=== PATIENT | female | born 1945 | race African-American/Black ===

== ENCOUNTER 2023-12-20 19:54 | Inpatient (IN) | payer OTHER, MEDICARE ==
[~2023-12-20] VITALS: Ht 157.5 cm; Wt 80.3 kg
[2023-12-20] MEDS ORDERED: CEFEPIME 2GM IN DEXT 5% 100ML IV ONE (21:15)
[2023-12-20] MEDS: CEFEPIME 2GM/100ML 100 ML IV NR (21:15)
[2023-12-20] MEDS: SODIUM CHLORIDE 0.9% 1000ML BAG (SEPSIS BOLUS) IV ONE (21:29)
[2023-12-20 21:33] LABS: BASOPHILS % 0.2 % (0.0-2.0); DIFFERENTIAL COMMENT 0; EOSINOPHILS % 0.1 % (0.0-5.0); HEMATOCRIT. 37.6 % (36.0-48.0); HEMOGLOBIN. 11.9 g/dL (12.0-16.0); LYMPHOCYTES % 7.3 % (20.0-50.0); MEAN CORPUSCULAR HEMOGLOBIN 23.9 pg (28.0-32.0); MEAN CORPUSCULAR HGB CONC 31.7 g/dL (31.0-37.0); MEAN CORPUSCULAR VOLUME 75.3 fL (81.0-99.0); MEAN PLATELET VOLUME 9.2 fl (7.4-10.4); NEUTROPHILS % 85.4 % (40.0-76.0); PLATELET 415 x1000/uL (130-400); RED CELL DISTRIBUTION WIDTH 15.8 % (11.6-14.6); WHITE BLOOD COUNT 15.1 x1000/uL (4.5-11.0)
[2023-12-20 21:34] LABS: CHLORIDE 107 mEq/L (98-107); POTASSIUM 5.3 mEq/L (3.5-5.1); SODIUM 147 mEq/L (136-145)
[2023-12-20 21:35] LABS: CARBON DIOXIDE 22 mEq/L (21-32)
[2023-12-20 21:40] LABS: CREATININE 1.5 mg/dL (0.6-1.0); GLUCOSE 102 mg/dL (70-105); UREA NITROGEN BLOOD 23 mg/dL (9-23)
[2023-12-20 21:42] LABS: CREATINE KINASE 85 IU/L (34-145); LACTIC ACID 2.5 mmol/L (0.4-2.0)
[2023-12-20 21:43] LABS: TROPONIN I HIGH SENSITIVITY 46 ng/L (3.0-34)
[2023-12-20] MEDS: VANCOMYCIN 1G PREMIX 200 ML IV ONE (22:00)
[2023-12-21 02:01] LABS: TROPONIN I HIGH SENSITIVITY 60 ng/L (3.0-34)
[2023-12-21 02:06] LABS: INR 1.1; PROTHROMBIN TIME 12.1 sec (9.6-11.0)
[2023-12-21] MEDS: DEXT 5%/0.45% NACL 1000ML 1,000 ML IV SCH (05:15)
[2023-12-21] MEDS ORDERED: DOCUSATE SODIUM 100MG CAPSULE PO PRN (05:15)
[2023-12-21] MEDS ORDERED: ACETAMINOPHEN 325MG TABLET PO PRN ×2 (05:15)
[2023-12-21] MEDS ORDERED: HYDRALAZINE 20MG/ML VIAL IV PRN (05:15)
[2023-12-21] MEDS ORDERED: IPRATROPIUM/ALBUTEROL 0.5-3(2.5)MG/3ML NEB HHN PRN (05:15)
[2023-12-21] MEDS ORDERED: MAGNESIUM/ALUMINUM HYDROXIDE/SIMETHICONE 30ML UDC PO PRN (05:15)
[2023-12-21] MEDS ORDERED: DEXTROSE 50% WATER 50ML SYRINGE IV PRN (06:15)
[2023-12-21] MEDS: BLOOD SUGAR DIAGNOSTIC STRIP TEST SCH (06:45)
[2023-12-21] MEDS: INSULIN LISPRO 100 UNITS/ML SUBCUT SCH (07:15)
[2023-12-21] MEDS: CEFTRIAXONE 1GM/50ML 50 ML IV SCH (08:48)
[2023-12-21] MEDS: ENOXAPARIN 30MG/0.3ML SYR SUBCUT SCH (08:49)
[2023-12-21 10:39] LABS: BASOPHILS % 0.3 % (0.0-2.0); DIFFERENTIAL COMMENT 0; EOSINOPHILS % 0.2 % (0.0-5.0); HEMATOCRIT. 35.8 % (36.0-48.0); HEMOGLOBIN. 11.3 g/dL (12.0-16.0); LYMPHOCYTES % 9.8 % (20.0-50.0); MEAN CORPUSCULAR HEMOGLOBIN 23.7 pg (28.0-32.0); MEAN CORPUSCULAR HGB CONC 31.5 g/dL (31.0-37.0); MEAN CORPUSCULAR VOLUME 75.3 fL (81.0-99.0); MEAN PLATELET VOLUME 9.2 fl (7.4-10.4); MONOCYTES % 7.7 % (2.0-8.0); PLATELET 357 x1000/uL (130-400); RED BLOOD CELL COUNT 4.75 mill/uL (4.2-5.4); RED CELL DISTRIBUTION WIDTH 15.3 % (11.6-14.6); WHITE BLOOD COUNT 13.8 x1000/uL (4.5-11.0)
[2023-12-21 10:42] LABS: CHLORIDE 110 mEq/L (98-107); SODIUM 148 mEq/L (136-145)
[2023-12-21 10:43] LABS: CARBON DIOXIDE 26 mEq/L (21-32); INR 1.1; PARTIAL THROMBOPLASTIN TIME 22.2 sec (23.4-31.0); PROTHROMBIN TIME 12.1 sec (9.6-11.0)
[2023-12-21 10:44] LABS: CALCIUM 9.6 mg/dL (8.7-10.4); CREATINE KINASE MB FRACTION 3.2 ng/mL (0.5-3.6)
[2023-12-21 10:48] LABS: GLUCOSE 118 mg/dL (70-105)
[2023-12-21 10:49] LABS: AMMONIA < 17 uMol/L (<32); UREA NITROGEN BLOOD 24 mg/dL (9-23)
[2023-12-21 10:50] LABS: ALANINE AMINOTRANSFERASE 55 IU/L (10-49); ALBUMIN 4.2 g/dL (3.2-4.8); ASPARTATE AMINOTRANSFERASE 46 IU/L (<34)
[2023-12-21 10:51] LABS: BILIRUBIN TOTAL 0.6 mg/dL (0.1-1.0); PROTEIN TOTAL 8.3 g/dL (6.0-8.3)
[2023-12-21 10:56] LABS: FOLIC ACID (FOLATE) SERUM 8.11 ng/mL (>5.38)
[2023-12-21 10:57] LABS: VITAMIN B12 SERUM 1292 pg/mL (211-911)
[2023-12-21] MEDS: PANTOPRAZOLE SODIUM 40 MG/VIAL IV SCH (11:06)
[2023-12-21 11:22] LABS: POTASSIUM 2.8 mEq/L (3.5-5.1)
[2023-12-21] MEDS: POTASSIUM CHLORIDE 20MEQ/PACKET PO NR (11:38)
[2023-12-21 12:00] VITALS: BP 111/69; PULSE 94; RESP 18; TEMP 97
[2023-12-21 16:00] VITALS: BP 115/66; PULSE 109; RESP 18; TEMP 97.6
[2023-12-21 16:58] LABS: HEPATITIS B SURFACE ANTIGEN NEGATIVE (Negative)
[2023-12-21 17:19] LABS: HEPATITIS C AB REACTIVE (Pos) (Negative)
[2023-12-21 20:00] VITALS: BP 121/84; PULSE 73; RESP 19; TEMP 98.6
[2023-12-21] MEDS: MELATONIN 3MG TABLET PO SCH (22:15)
[2023-12-22] VITALS: BP 120/68; PULSE 99; RESP 19; TEMP 97.8
[2023-12-22 04:00] VITALS: BP 124/76; PULSE 97; RESP 18; TEMP 98.2
[2023-12-22 06:36] LABS: BASOPHILS % 0.3 % (0.0-2.0); DIFFERENTIAL COMMENT 0; EOSINOPHILS % 0.4 % (0.0-5.0); HEMATOCRIT 34.6 % (36.0-48.0); HEMATOCRIT. 34.6 % (36.0-48.0); LYMPHOCYTES % 14.7 % (20.0-50.0); MEAN CORPUSCULAR HEMOGLOBIN 23.4 pg (28.0-32.0); MEAN CORPUSCULAR HGB CONC 31.7 g/dL (31.0-37.0); MEAN CORPUSCULAR VOLUME 73.6 fL (81.0-99.0); MEAN PLATELET VOLUME 9.3 fl (7.4-10.4); MONOCYTES % 9.9 % (2.0-8.0); NEUTROPHILS % 74.7 % (40.0-76.0); PLATELET 289 x1000/uL (130-400); RED CELL DISTRIBUTION WIDTH 15.5 % (11.6-14.6)
[2023-12-22 06:49] LABS: CARBON DIOXIDE 22 mEq/L (21-32); CHLORIDE 108 mEq/L (98-107); SODIUM 143 mEq/L (136-145)
[2023-12-22 06:50] LABS: CALCIUM 8.7 mg/dL (8.7-10.4)
[2023-12-22 06:53] LABS: THYROID STIMULATING HORMONE 0.46 uIU/mL (0.55-4.78)
[2023-12-22 06:55] LABS: CREATININE 0.8 mg/dL (0.6-1.0); GLUCOSE 116 mg/dL (70-105); TRIGLYCERIDE 82 mg/dL (0-150); UREA NITROGEN BLOOD 18 mg/dL (9-23)
[2023-12-22 06:56] LABS: LDL CHOLESTEROL 56 mg/dL (5-100)
[2023-12-22 06:57] LABS: CHOLESTEROL 95 mg/dL (<200); HDL CHOLESTEROL 27 mg/dL (>65); PHOSPHORUS 1.6 mg/dL (2.5-4.9)
[2023-12-22 08:00] VITALS: BP 125/80; PULSE 93; RESP 19; TEMP 97.1
[2023-12-22 09:42] LABS: POTASSIUM 2.7 mEq/L (3.5-5.1)
[2023-12-22] MEDS: LEVOTHYROXINE SODIUM 25MCG TABLET PO SCH (10:24)
[2023-12-22] MEDS: ONDANSETRON HCL 4MG/2ML INJ IV PRN (11:03)
[2023-12-22 12:00] VITALS: BP 127/83; PULSE 94; RESP 19; TEMP 96.8
[2023-12-22 12:29] LABS: IRON 106 ug/dL (50-170)
[2023-12-22 12:31] LABS: TOTAL IRON BINDING CAPACITY 361 ug/dl (250-425)
[2023-12-22 12:34] LABS: T4 FREE 1.18 ng/dL (0.89-1.76)
[2023-12-22] MEDS: POTASSIUM PHOSPHATE 30 MMOL in SODIUM CHLORIDE 0.9% 490 ML IV NR (12:39)
[2023-12-22 16:00] VITALS: BP 130/74; PULSE 87; RESP 18; TEMP 97.2
[2023-12-22] MEDS: DOXYCYCLINE 100MG/100ML 100 ML IV SCH (17:28)
[2023-12-22] MEDS: MAGNESIUM 1 G PREMIX 100 ML IV NR (18:57)
[2023-12-22 20:00] VITALS: BP 121/79; PULSE 97; RESP 20; TEMP 97.9
[2023-12-23] VITALS: BP 169/82; PULSE 95; PULSE 99; RESP 20; TEMP 97.3
[2023-12-23 04:00] VITALS: BP 128/70; PULSE 76; RESP 18; TEMP 98.6
[2023-12-23 07:38] LABS: CARBON DIOXIDE 22 mEq/L (21-32); CHLORIDE 106 mEq/L (98-107); SODIUM 145 mEq/L (136-145)
[2023-12-23 07:39] LABS: CALCIUM 8.3 mg/dL (8.7-10.4)
[2023-12-23 07:43] LABS: CREATININE 0.7 mg/dL (0.6-1.0)
[2023-12-23 07:44] LABS: GLUCOSE 100 mg/dL (70-105); UREA NITROGEN BLOOD 15 mg/dL (9-23)
[2023-12-23 07:46] LABS: PHOSPHORUS 3.1 mg/dL (2.5-4.9)
[2023-12-23 07:51] LABS: POTASSIUM 2.7 mEq/L (3.5-5.1)
[2023-12-23 07:54] LABS: HEMATOCRIT 34.5 % (36.0-48.0); MEAN CORPUSCULAR HEMOGLOBIN 23.4 pg (28.0-32.0); PLATELET 263 x1000/uL (130-400); RED BLOOD CELL COUNT 4.72 mill/uL (4.2-5.4); RED CELL DISTRIBUTION WIDTH 15.6 % (11.6-14.6); WHITE BLOOD COUNT 11.8 x1000/uL (4.5-11.0)
[2023-12-23 08:00] VITALS: BP 146/80; PULSE 85; RESP 18; TEMP 97
[2023-12-23] MEDS: FAMOTIDINE 20MG/2ML VIAL IV SCH (09:01)
[2023-12-23] MEDS: POTASSIUM CHLORIDE 20MEQ/PACKET PO NR ×2 (09:01→20:51)
[2023-12-23 12:00] VITALS: BP 132/83; PULSE 99; RESP 18; TEMP 98
[2023-12-23 16:00] VITALS: BP 144/79; PULSE 99; RESP 18; TEMP 98
[2023-12-23 16:36] LABS: HEMATOCRIT 33.7 % (36.0-48.0); HEMOGLOBIN 10.9 g/dL (12.0-16.0); MEAN CORPUSCULAR HEMOGLOBIN 23.8 pg (28.0-32.0); MEAN CORPUSCULAR HGB CONC 32.2 g/dL (31.0-37.0); MEAN CORPUSCULAR VOLUME 73.9 fL (81.0-99.0); PLATELET 286 x1000/uL (130-400); RED BLOOD CELL COUNT 4.57 mill/uL (4.2-5.4); RED CELL DISTRIBUTION WIDTH 15.5 % (11.6-14.6); WHITE BLOOD COUNT 11.6 x1000/uL (4.5-11.0)
[2023-12-23 16:42] LABS: CHLORIDE 108 mEq/L (98-107); POTASSIUM 3.1 mEq/L (3.5-5.1); SODIUM 145 mEq/L (136-145)
[2023-12-23 16:43] LABS: CALCIUM 8.4 mg/dL (8.7-10.4); CARBON DIOXIDE 19 mEq/L (21-32)
[2023-12-23 16:48] LABS: CREATININE 0.8 mg/dL (0.6-1.0); GLUCOSE 151 mg/dL (70-105); UREA NITROGEN BLOOD 14 mg/dL (9-23)
[2023-12-23 16:50] LABS: PHOSPHORUS 1.9 mg/dL (2.5-4.9)
[2023-12-23 20:00] VITALS: BP 152/84; PULSE 95; RESP 20; TEMP 97.7
[2023-12-24] VITALS: BP 146/76; PULSE 84; RESP 19; TEMP 98.6
[2023-12-24 04:00] VITALS: PULSE 77; RESP 18; TEMP 98.2
[2023-12-24 08:00] VITALS: BP 94/67; PULSE 100; RESP 19; TEMP 97.8
[2023-12-24] MEDS: POTASSIUM CHLORIDE 20MEQ TABLET SR PO NR (11:16)
[2023-12-24 12:00] VITALS: BP 136/74; PULSE 105; RESP 18; TEMP 97.1
[2023-12-24 16:00] VITALS: BP 160/86; PULSE 96; RESP 18; TEMP 97.8
[2023-12-24 16:22] VITALS: BP 148/85; PULSE 96; TEMP 97.8; O2SAT 96
[2023-12-24 17:28] LABS: CHLORIDE 111 mEq/L (98-107); POTASSIUM 4.5 mEq/L (3.5-5.1); SODIUM 144 mEq/L (136-145)
[2023-12-24 17:29] LABS: CALCIUM 8.5 mg/dL (8.7-10.4); CARBON DIOXIDE 21 mEq/L (21-32)
[2023-12-24 17:34] LABS: CREATININE 0.8 mg/dL (0.6-1.0); GLUCOSE 114 mg/dL (70-105); UREA NITROGEN BLOOD 12 mg/dL (9-23)
[2023-12-24 17:37] LABS: PHOSPHORUS 1.5 mg/dL (2.5-4.9)
== END 2023-12-24 18:10 | disposition short-term general hospital (02) | DRG 871 ==
LOC: ER 19:54 → 5WST 12-21 01:15 → EDBEDREQ 12-21 01:52 → EDBEDREQTM 12-21 01:52 → EDBEDREQDT 12-21 01:52 → 7EST 12-21 11:57
PROVIDERS: ADMIT Internal Medicine; ATTEND Internal Medicine
DX: A41.9 Sepsis, unspecified organism (principal); G93.41 Metabolic encephalopathy; J18.9 Pneumonia, unspecified organism; E87.0 Hyperosmolality and hypernatremia; N17.9 Acute kidney failure, unspecified; I24.89 Other forms of acute ischemic heart disease; D64.9 Anemia, unspecified; D75.838 Other thrombocytosis; E11.22 Type 2 diabetes mellitus with diabetic chronic kidney disease; E86.0 Dehydration; E87.6 Hypokalemia; L30.4 Erythema intertrigo; E87.5 Hyperkalemia; I12.9 Hypertensive chronic kidney disease with stage 1 through stage 4 chronic kidney disease, or unspecified chronic kidney disease; I48.91 Unspecified atrial fibrillation; N18.9 Chronic kidney disease, unspecified; Z88.0 Allergy status to penicillin
CPT/HCPCS: 36415; 71045; 80048; 80053; 80061; 82140; 82550; 82553; 82607; 82746; 82962; 83036; 83540; 83550; 83605; 83735; 84100; 84145; 84439; 84443; 84484; 85025; 85027; 86705; 87340; 92610; 93005; 93306; 93308; 93880; 93970; 97162; 97166; 99291; A6261; C9113; J0360; J0692; J0696; J1650; J1815; J2405; J3370; J3475; J3490; J7030; J7040